=== PATIENT | male | born 1995 | race Caucasian/White ===

== ENCOUNTER 2017-03-20 17:38 | Emergency (ER) | payer OTHER ==
[~2017-03-20] VITALS: Ht 182.9 cm; Wt 76.7 kg
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
== END 2017-03-20 19:34 | disposition home or self-care (01) ==
LOC: CED 17:38 → CFTX 17:38
DX: S39.012A Strain of muscle, fascia and tendon of lower back, initial encounter (principal); S50.01XA Contusion of right elbow, initial encounter; S20.212A Contusion of left front wall of thorax, initial encounter; F17.200 Nicotine dependence, unspecified, uncomplicated; V48.5XXA Car driver injured in noncollision transport accident in traffic accident, initial encounter
CPT/HCPCS: 70450; 71020; 72072; 72100; 72125; 73080; 99284